=== PATIENT | male | born 1965 | race Two or more races ===

== ENCOUNTER 2025-04-16 19:09 | Emergency (ER) | payer MEDICAID, SELFPAY ==
[2025-04-16 19:12] VITALS: BMI 26.6
[2025-04-16 20:05] VITALS: BP 118/67; PULSE 74; RESP 20; TEMP 36.4; O2SAT 98
--- NOTE | 2025-04-16 20:12 | XR_ITS ---
Examination: CT abdomen and pelvis without contrast. Coronal 3-D reconstructions. Sagittal 2-D reconstructions. Date and time of exam:April 16, 2025 2119 hours INDICATIONS: Back pain and flank pain and hematuria today CTDI: vol (mGy): 7.74 DLP: (mGycm): 188 Technique: Axial images of the abdomen have been obtained, 3 mm slice thickness Intravenous contrast material has not been administered. Low dose protocols were performed. One or more of the following dose reduction techniques were used; automated exposure control, adjustment of the mA and/or KV according to patient size, use of iterative reconstruction technique. Findings: 11 mm pleural-based pulmonary nodule left lower lobe No visualized liver and splenic lesions Cholelithiasis No pancreatic or adrenal mass No renal or ureteral calculi, no hydronephrosis Aorta normal size Normal appendix Colonic diverticulosis, no diverticulitis Contracted urinary bladder, no bladder calculi IMPRESSION: 11 mm pulmonary nodule left lower lobe, recommend PA lateral chest follow-up No renal or ureteral calculi, no hydronephrosis Cholelithiasis No bladder mass or bladder calculi Grade 1 spondylolisthesis L5 on S1 with moderate degenerative disc disease at this level
--- NOTE | 2025-04-16 20:13 | PD.EDBACK ---
ED Back Injury Pain RME/HPI General Chief Complaint: Urogenital-Male Stated Complaint: RIGHT LOWER BACK PAIN,NAUSEA,URINATING BLOOD Time Seen by Provider: 04/16/25 20:09 Arrival date/time: 04/16/25 19:09 60M with no significant PMH presents to ED with 2 days of R flank pain, hematuria, and N/V. Minimal dysuria. Limitations: no limitations Related Data Allergies Allergy/AdvReac Type Severity Reaction Status Date / Time No Known Allergies Allergy Verified 04/16/25 19:11 Review of Systems Review of Systems Systems Reviewed: All systems reviewed, normal except as documented Constitutional Constitutional: Reports system reviewed and no additional complaints, except as documented, Denies fever(s) and Denies headache(s) ENT Ears, Nose, Mouth, and Throat: Denies disequilibrium and Denies headache(s) Cardiovascular Cardiovascular: Reports system reviewed and no additional complaints, except as documented, Denies chest pain and Denies dyspnea Respiratory Respiratory: Reports system reviewed and no additional complaints, except as documented, Denies cough and Denies dyspnea Gastrointestinal Gastrointestinal: Reports system reviewed and no additional complaints, except as documented, Denies abdominal pain, Denies nausea and Denies vomiting Genitourinary Genitourinary: Reports as per HPI, Reports dysuria, Reports flank pain and Reports hematuria Neurologic Neurologic: Reports system reviewed and no additional complaints, except as documented, Denies confusion, Denies disequilibrium and Denies headache(s) Psychiatric Psychiatric: Denies confusion Past Medical History Social History SMOKING STATUS: Never smoker ED Exam General Limitations: Present no limitations General appearance: Present alert and in no apparent distress Head Head exam: Present atraumatic Eye Eye exam: Present normal appearance, PERRL and EOMI ENT ENT exam: Present normal exam, normal oropharynx and mucous membranes moist Neck Neck exam: Present normal inspection, full ROM and trachea midline Chest Chest inspection: Present normal inspection and symmetric chest wall rise Respiratory Respiratory exam: Present normal lung sounds bilaterally Cardiovascular Cardiovascular exam: Present regular rate, normal rhythm and normal heart sounds Abdominal Exam Abdominal exam: Present soft and normal bowel sounds Extremities Exam Extremities exam: Present normal inspection and full ROM Back Exam Back exam: Present normal inspection and full ROM Neurological Exam Neurological exam: Present alert, oriented X3 and CN II-XII intact Psychiatric Psychiatric exam: Present normal affect and normal mood Skin Skin exam: Present warm, dry, intact and normal color Course Quality Measures none Orders Category Date Time Status CT abdomen pelvis wo con Stat Exams 04/16/25 20:12 Completed CBC Stat Lab 04/16/25 20:18 Completed CMP [Comprehensive Metabolic Panel] Stat Lab 04/16/25 20:18 Completed Drug Screen,Urine Stat Lab 04/16/25 20:45 Completed Lipase Stat Lab 04/16/25 20:18 Completed UA [Urinalysis] Stat Lab 04/16/25 20:45 Completed Urine Culture Stat Lab 04/16/25 20:45 Received Ketorolac Inj [Toradol Inj] Med 04/16/25 20:12 Discontinued 60 mg IM X1 ONE Ondansetron Odt [Zofran Odt] Med 04/16/25 20:12 Discontinued 4 mg PO X1 ONE oxyCODONE/APAP 5/325 [Percocet 5/325] Med 04/16/25 23:22 Discontinued 1 tab PO X1 ONE Vital Signs Vital signs: Vital Signs Temperature 97.5 F 04/16/25 20:05 Pulse Rate 74 04/16/25 20:05 Respiratory Rate 20 04/16/25 20:05 Blood Pressure 118/67 04/16/25 20:05 Pulse Oximetry (%) 98 04/16/25 20:05 Oxygen Delivery Method Room Air 04/16/25 20:05 O2 at 98% on RA and WNLs Back Pain / Injury MDM Narrative MDM Narrative:: 60M with no significant PMH presents to ED with 2 days of R flank pain, hematuria, and N/V. Minimal dysuria. Physical exam reveals patient who appears to be in pain. Patient is afebrile, calm, and alert. CT reveals L5/SI slipped disc. No kidney stone. Incidental pulmonary nodule. No leukocytosis. CMP unremarkable. Tox screen meth positive. UA clean. Meds and admissions counselor given. Patient data External records reviewed:: None Clinical information provided by:: patient Social determinants that could affect healthcare access:: none Patient has the following chronic illnesses:: none How is presenting disease/condition affected by chronic disease/condition?: no chronic disease Evaluation data The following diagnostics were reviewed and interpreted by me:: lab results and radiology exam(s) Lab and/or radiology exams considered but not ordered:: ordered Interpretation Summary: above Medications / Prescriptions Medications or Prescriptions considered but not ordered:: ordered Medication administrations:: Medication Administration History Discontinued Medications Ketorolac Tromethamine (Ketorolac Inj 60 Mg/2 Ml Vial) 60 mg IM X1 ONE Stop: 04/16/25 20:13 Last Admin: 04/16/25 20:18 Dose: 60 mg Documented By: GILMER Ondansetron HCl (Ondansetron Odt 4 Mg Tabrap) 4 mg PO X1 ONE; Protocol Stop: 04/16/25 20:13 Last Admin: 04/16/25 20:18 Dose: 4 mg Documented By: GILMER Oxycodone/Acetaminophen (Oxycodone/Apap 5/325 Tablet) 1 tab PO X1 ONE Stop: 04/16/25 23:23 Last Admin: 04/16/25 23:25 Dose: 1 tab Documented By: CVL above Consultations Consultation(s) initiated? (list below): No Diagnosis Differential diagnosis back pain/injury: lumbar radiculopathy, sciatica, strain of lumbar region, renal colic, pyelonephritis, thoracic back pain, AAA, discitis and other (kidney stone, slipped disc and pulmonary nodule ) Most likely diagnosis given after review of the tests above:: slipped disc and pulmonary nodule Admission Indicated Admission indicated?: not indicated Admission Request Was there a request for admission?: No Disposition Plan Disposition Plan: Discharge Discharge Attestation Discharge Attestation: The patient and all family members were given an opportunity to ask questions and understood the discharge instructions. Discharge instructions specifically effects, indications for sooner follow up or return to the emergency department, and the expected course of current diagnosis. Patient condition: Stable Discharge Plan Plan Patient Disposition: HOME (Self Care) Discharge Disposition comment: Stable Prescriptions/Referrals Referrals: [facility] [Primary Care Provider] - In 1 week Problem List Clinical Impression: Slipped intervertebral disc, Incidental pulmonary nodule Patient/Caregiver Discharge Instructions Education Materials: Common Spine and Disk Problems, ED Pulmonary Nodule, Solitary Additional Instructions: Please follow-up with PCP within 24-48 hours and return immediately if symptoms worsen. If problem persists, recommend outpatient PT and/or MRI follow-up. In the meantime, rest, use ice/heat, and/or compression. Follow-up with PCP about pulmonary nodule monitoring. Print Language: Occitan Stand Alone Forms: Patient Portal Info Letter POP/JP Supervising Physician MIKEY Supervising Physician: Dr. Momin
[2025-04-16] MEDS: ONDANSETRON ODT 4 MG TABRAP PO (20:18)
[2025-04-16] MEDS: KETOROLAC INJ 60 MG/2 ML VIAL IM (20:18)
[2025-04-16 20:32] LABS: Basophils # (Auto) 0.0 Thou/mm3 (0.0-0.2); Basophils % (Auto) 0 % (0-2.5); Eosinophils # (Auto) 0.1 Thou/mm3 (0.0-0.5); Eosinophils % (Auto) 1 % (0-10); Hematocrit 44.0 % (41.0-53.0); Hemoglobin 15.3 g/dL (13.5-16.0); Immature Granulocytes Auto 0.02 Thou/mm3 (0.00-0.00); Lymphocytes # (Auto) 3.9 Thou/mm3 (1.0-4.8); Lymphocytes % (Auto) 41 % (10-50); Mean Corpuscular HGB Conc 34.8 g/dl (31.0-37.0); Mean Corpuscular Hemoglobin 28.3 pg (25.0-35.0); Mean Corpuscular Volume 81 fL (80-100); Monocytes # (Auto) 0.6 Thou/mm3 (0.0-0.8); Monocytes % (Auto) 6 % (0-12); Neutrophils # (Auto) 4.9 Thou/mm3 (1.8-7.7); Neutrophils % (Auto) 52 % (37-80); Nucleated Red Blood Cell # 0.00 Thou/mm3 (0.00-0.00); Nucleated Red Blood Cell % 0 /100 WBC (0); Platelet Count 232 Thou/mm3 (140-440); RDW Standard Deviation 40.6 fL (35.1-43.9); Red Blood Count 5.41 Miln/mm3 (4.50-5.90); White Blood Count 9.5 Thou/mm3 (3.8-10.6)
[2025-04-16 20:55] LABS: Alanine Aminotransferase 22 U/L (10-49); Albumin, Serum 4.2 gm/dL (3.4-4.8); Albumin/Globulin Ratio 1.7 (1.2-2.2); Alkaline Phosphatase 82 U/L (46-116); Anion Gap 7 (7-16); Aspartate Amino Transferase 20 U/L (0-34); BUN/Creatinine Ratio 11 Ratio (12-20); Bilirubin,Total 0.9 mg/dL (0.3-1.2); Blood Urea Nitrogen 11 mg/dL (9-23); Calcium 9.3 mg/dL (8.3-10.6); Calcium (Corrected) 9.3 mg/dL (8.5-10.1); Carbon Dioxide 26.0 mMol/L (20.0-31.0); Chloride 105 mMol/L (98-107); Creatinine (Component) 1.0 mg/dL (0.6-1.3); Estimated Creatinine Clearance 66.6 mL/min (>60); Globulin 2.5 gm/dL (2.3-3.5); Glucose 165 mg/dL (74-106); Lipase 35 U/L (12-53); Osmolality,Calculated 279 (275-295); Potassium 4.4 mMol/L (3.4-5.1); Sodium 138 mMol/L (136-145); Total Protein 6.7 gm/dL (5.7-8.2); eGFR > 60 See Note
[2025-04-16 20:56] LABS: Collection Type, Urine Clean Catch; Squamous Epithelial Cell,Urine 0 /hpf (0-5); WBC,Urine 0 /hpf (0-5)
[2025-04-16 21:06] LABS: Bilirubin,Urine Negative (Negative); Blood,Urine Negative (Negative); Clarity,Urine Clear (Clear/Hazy); Color,Urine Colorless (Lt Yel-Yel); Glucose, Urine Negative (Negative); Ketones,Urine Negative (Negative); Leukocyte Esterase,Urine Negative (Negative); Nitrite,Urine Negative (Negative); PH,Urine 6.5 (5.0-7.0); Protein,Urine Negative (Neg - Trace); RBC,Urine 1 /hpf (0-3); Specific Gravity,Urine 1.004 (1.001-1.035); Urobilinogen,Urine Negative mg/dL (0.0-1.0)
[2025-04-16 21:13] LABS: Amphetamine/Methamp Scrn,U Positive (Negative); Barbiturate Screen,Urine Negative (Negative); Benzodiazepines Screen,Urine Negative (Negative); Benzoylecgonine Screen, Ur Negative (Negative); Fentanyl Screen,Urine Negative (Negative); Opiate Screen,Urine Negative (Negative); THC Screen,Urine Negative (Negative)
[2025-04-16 23:55] VITALS: RESP 16
== END 2025-04-16 23:55 | disposition home or self-care (01) ==
PROVIDERS: Physician Assistant; Emergency Provider Emergency Medicine; PCP Registered Nurse
DX: M51.27 Other intervertebral disc displacement, lumbosacral region (principal); R91.1 Solitary pulmonary nodule; M51.379 Other intervertebral disc degeneration, lumbosacral region without mention of lumbar back pain or lower extremity pain; M43.17 Spondylolisthesis, lumbosacral region
CPT/HCPCS: 36415; 74176; 80053; 80307; 81001; 83690; 85025; 87086; 96372; 99284; J1885; Q0162; A9270